=== PATIENT | female | born 1985 | race Two or more races ===

== ENCOUNTER 2022-08-09 10:44 | Inpatient (IN) | payer OTHER ==
[~2022-08-09] VITALS: Ht 162.6 cm; Wt 69.9 kg
[2022-08-09] MEDS ORDERED: DIALYVITE TABL1 EACH PO (11:33)
== END 2022-08-12 10:40 | disposition home or self-care (01) | DRG 833 ==
LOC: ER 10:44 → OB/GYN 15:46 → SEC-K 15:46 → OB/GYN 16:47
PROVIDERS: ADMIT Obstetrics & Gynecology; ATTEND Obstetrics & Gynecology
PROC: BT43ZZZ Ultrasonography of Bilateral Kidneys (ICD-10-PCS; principal; 2022-08-09)
PROC: 4A1HXCZ Monitoring of Products of Conception, Cardiac Rate, External Approach (ICD-10-PCS; 2022-08-09)
PROC: BY4CZZZ Ultrasonography of Second Trimester, Single Fetus (ICD-10-PCS; 2022-08-10)
DX: O23.02 Infections of kidney in pregnancy, second trimester (principal); O23.42 Unspecified infection of urinary tract in pregnancy, second trimester; Z3A.15 15 weeks gestation of pregnancy; Z20.822 Contact with and (suspected) exposure to COVID-19

== ENCOUNTER 2023-01-09 11:45 | Inpatient (IN) | payer OTHER ==
[~2023-01-09] VITALS: Ht 152.4 cm; Wt 2.7 kg
[~2023-01-09 11:45] MED LIST: DIALYVITE TABL1 EACH PO
[2023-01-09] MEDS ORDERED: CHILDREN'S ASPI81 MG PO (13:48)
[2023-01-09] MEDS ORDERED: PRENATABS RX T1 EACH PO (13:48)
== END 2023-01-15 10:54 | disposition home or self-care (01) | DRG 785 ==
LOC: LDR 01-13 05:46 → OB/GYN 01-13 05:46 → O/R 01-13 07:54 → OB/GYN 01-13 09:38
PROVIDERS: ADMIT Obstetrics & Gynecology; ATTEND Obstetrics & Gynecology
PROC: 0UB70ZZ Excision of Bilateral Fallopian Tubes, Open Approach (ICD-10-PCS; 2023-01-13)
PROC: 4A1HXCZ Monitoring of Products of Conception, Cardiac Rate, External Approach (ICD-10-PCS; 2023-01-13)
PROC: 10D00Z1 Extraction of Products of Conception, Low, Open Approach (ICD-10-PCS; principal; 2023-01-13 07:00)
DX: O34.211 Maternal care for low transverse scar from previous cesarean delivery (principal); Z3A.38 38 weeks gestation of pregnancy; Z37.0 Single live birth; Z30.2 Encounter for sterilization; Z20.822 Contact with and (suspected) exposure to COVID-19